=== PATIENT | male | born 1980 | race Caucasian/White ===

== ENCOUNTER 2016-05-04 22:09 | Inpatient (IN) | payer OTHER ==
[~2016-05-04] VITALS: Ht 177.8 cm; Wt 122.5 kg
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
[2016-05-04] MEDS ORDERED: NITROGLYCERIN SUBLINGUAL 0.4 MG BOTTLE OF 25. SL PRN ×2 (22:30→23:30)
[2016-05-04 22:32] LABS: BASO # 0.1 x10^3/uL (0.0-0.2); BASO % 1 % (0-3); EOS % 2 % (0-3); HEMOGLOBIN 14.9 g/dL (13.0-17.5); LYMPH # 2.5 x10^3/uL (1.0-4.8); LYMPH % 20 % (24-48); MEAN CORPUSCULAR HEMOGLOBIN 29 pg (25-35); MEAN CORPUSCULAR HGB CONC 33 g/dL (31-37); MEAN CORPUSCULAR VOLUME 88 fL (79-100); MONO % 5 % (0-9); NEUT % 72 % (31-73); PLATELET COUNT 154 x10^3/uL (140-400); RED BLOOD COUNT 5.14 x10^6/uL (4.30-5.70); RED CELL DISTRIBUTION WIDTH 13.2 % (11.5-14.5); WHITE BLOOD COUNT 12.1 x10^3/uL (4.0-11.0)
[2016-05-04 22:59] LABS: CALCIUM 9.3 mg/dL (8.5-10.1); CREATININE 1.1 mg/dL (0.7-1.3); GFR 75.3; POTASSIUM 3.8 mmol/L (3.5-5.1)
[2016-05-04] MEDS ORDERED: IV NORMAL SALINE 1000ML BAG 1,000 ML IV ONE (23:15)
[2016-05-04] MEDS ORDERED: ONDANSETRON PF 4 MG/2 ML VIAL. IV PRN (23:30)
[2016-05-04] MEDS ORDERED: DEXTROSE 50% 25 GM / 50ML DISP.SYRIN. IV PRN (23:30)
[2016-05-04] MEDS ORDERED: MORPHINE SULFATE 2 MG/ML DISP.SYRIN. IV PRN (23:30)
[2016-05-05 01:03] VITALS: BP 135/81
[2016-05-05] MEDS ORDERED: INSU100I13 SQ (01:52)
[2016-05-05] MEDS ORDERED: INSU100I17 SQ ×3 (01:52)
[2016-05-05] MEDS ORDERED: METF10002 PO (01:52)
[2016-05-05] MEDS ORDERED: CLOP75TA PO (01:52)
[2016-05-05 03:00] VITALS: BP 123/62
[2016-05-05 07:00] VITALS: BP 108/61
--- NOTE | 2016-05-05 07:41 | RAD ---
Two view chest History:Chest pain . PA and lateral views of the chest are submitted. Comparison: 06/16/2015 Findings: There is no significant infiltrate, pleural effusion, or pneumothorax. The pericardial cardiac silhouette is within normal limits in size. The trachea is in the midline. No acute osseous abnormality is identified. Impression: There is no evidence of acute cardiopulmonary disease.
[2016-05-05] MEDS: INSULIN ASPART 300 UNITS/3 ML INSULN.PEN SQ SCH ×5 (08:30→17:12)
[2016-05-05 11:00] VITALS: BP 106/62
[2016-05-05] MEDS: CLOPIDOGREL BISULFATE 75 MG TABLET PO SCH (11:56)
[2016-05-05] MEDS: METFORMIN 1,000 MG TABLET PO SCH ×2 (11:56→17:02)
--- NOTE | 2016-05-05 12:20 | PDOC ---
Provider Note Provider Note H&P dictated, # [id number] chest pain - occured at rest and unlikely to be cardiac but he is on plavix and apparently had it started after [facility] hospitalization last year but denies having a stent uncontrolled type 2 DM on insulin- he has been noncompliant and trying to skip doses so he will not run out Rocio MORROW MD May 05, 2016 12:20
--- NOTE | 2016-05-05 12:20 | EKG ---
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
[2016-05-05 15:00] VITALS: BP 106/64
[2016-05-05] MEDS ORDERED: INSULIN ASPART 300 UNITS/3 ML INSULN.PEN SQ SCH (17:00)
[2016-05-05 19:22] VITALS: BP 123/62
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
[2016-05-05] MEDS: INSULIN DETEMIR 300 UNITS/3 ML INSULN.PEN. SQ SCH (21:40)
[2016-05-06 03:35] VITALS: BP 80/32
[2016-05-06 05:06] LABS: BASO # 0.1 x10^3/uL (0.0-0.2); BASO % 0 % (0-3); EOS % 2 % (0-3); HEMATOCRIT 41.8 % (39.0-53.0); LYMPH # 2.6 x10^3/uL (1.0-4.8); LYMPH % 22 % (24-48); MEAN CORPUSCULAR HEMOGLOBIN 29 pg (25-35); MEAN CORPUSCULAR HGB CONC 34 g/dL (31-37); MEAN CORPUSCULAR VOLUME 87 fL (79-100); MONO % 6 % (0-9); NEUT % 70 % (31-73); PLATELET COUNT 156 x10^3/uL (140-400); RED BLOOD COUNT 4.79 x10^6/uL (4.30-5.70); RED CELL DISTRIBUTION WIDTH 13.1 % (11.5-14.5); WHITE BLOOD COUNT 12.1 x10^3/uL (4.0-11.0)
[2016-05-06 05:47] LABS: CALCIUM 8.8 mg/dL (8.5-10.1); CREATININE 0.8 mg/dL (0.7-1.3); GFR 108.8; POTASSIUM 3.6 mmol/L (3.5-5.1)
[2016-05-06 07:00] VITALS: BP 97/56
[2016-05-06] MEDS: METFORMIN 1,000 MG TABLET PO SCH ×2 (08:37→17:28)
[2016-05-06] MEDS: CLOPIDOGREL BISULFATE 75 MG TABLET PO SCH (08:38)
[2016-05-06] MEDS: INSULIN ASPART 300 UNITS/3 ML INSULN.PEN SQ SCH ×6 (08:44→17:00)
--- NOTE | 2016-05-06 08:56 | PDOC ---
PROGRESS NOTES Subjective Subjective Patient reports feeling well this morning and denies any acute events overnight. States that he did not feel well when his blood sugar dropped to around 80 last night but otherwise does not have any complaints. States that he would like to speak with Cardiology prior to discharge and plans to follow-up in outpatient clinic. Objective Objective Vital Signs Date Time Temp Pulse Resp B/P Pulse Ox O2 Delivery O2 Flow Rate FiO2 05/06/16 07:00 98.1 68 16 97/56 97 Room Air 98.1 Intake and Output 05/06/16 07:00 Intake Total 880 ml Balance 880 ml Intake Oral 880 ml # Voids 5 Physical Exam Heart: Regular rate, No murmurs Extremities: No clubbing, No cyanosis, No edema General: Alert, Oriented X3, No acute distress Lungs: Clear to auscultation Psych/Mental Status: Mental status NL Assessment Assessment Problems Medical Problems: (1) Chest pain Status: Acute (2) Diabetes Mellitus Type 2 with hyperglycemia Status: Acute Plan Plan of Care Medical Problems: (1) Chest pain-await cardiology input on his chest pain, likely discharge home today Status: Acute (2) Diabetes Mellitus Type 2 with hyperglycemia-continue with current insulin regimen, nutritional consult placed, plan to follow-up in outpatient clinic Status: Acute Comment Review of Relevant I have reviewed the following items damien (where applicable) has been applied. Labs Laboratory Tests Test 05/04/16 22:15 05/05/16 01:21 05/05/16 05:56 05/05/16 07:10 White Blood Count 12.1x10^3/uL (4.0-11.0) Red Blood Count 5.14x10^6/uL (4.30-5.70) Hemoglobin 14.9g/dL (13.0-17.5) Hematocrit 45.0% (39.0-53.0) Mean Corpuscular Volume 88fL (79-100) Mean Corpuscular Hemoglobin 29pg (25-35) Mean Corpuscular Hemoglobin Concent 33g/dL (31-37) Red Cell Distribution Width 13.2% (11.5-14.5) Platelet Count 154x10^3/uL (140-400) Neutrophils (%) (Auto) 72% (31-73) Lymphocytes (%) (Auto) 20% (24-48) Monocytes (%) (Auto) 5% (0-9) Eosinophils (%) (Auto) 2% (0-3) Basophils (%) (Auto) 1% (0-3) Neutrophils # (Auto) 8.7x10^3uL (1.8-7.7) Lymphocytes # (Auto) 2.5x10^3/uL (1.0-4.8) Monocytes # (Auto) 0.7x10^3/uL (0.0-1.1) Eosinophils # (Auto) 0.2x10^3/uL (0.0-0.7) Basophils # (Auto) 0.1x10^3/uL (0.0-0.2) Sodium Level 138mmol/L (136-145) Potassium Level 3.8mmol/L (3.5-5.1) Chloride Level 100mmol/L (98-107) Carbon Dioxide Level 29mmol/L (21-32) Anion Gap 9 (6-14) Blood Urea Nitrogen 16mg/dL (8-26) Creatinine 1.1mg/dL (0.7-1.3) Estimated GFR (Cockcroft-Gault) 75.3 Glucose Level 363mg/dL (70-99) Calcium Level 9.3mg/dL (8.5-10.1) Troponin I Quantitative < 0.017ng/mL (0.000-0.055) < 0.017ng/mL (0.000-0.055) Glucose (Fingerstick) 259mg/dL (70-99) 256mg/dL (70-99) Test 05/05/16 11:24 05/05/16 11:31 05/05/16 16:18 05/05/16 19:13 Glucose (Fingerstick) 271mg/dL (70-99) 217mg/dL (70-99) 81mg/dL (70-99) Troponin I Quantitative < 0.017ng/mL (0.000-0.055) Test 05/05/16 20:21 05/05/16 21:25 05/06/16 04:30 05/06/16 04:38 Glucose (Fingerstick) 107mg/dL (70-99) 147mg/dL (70-99) White Blood Count 12.1x10^3/uL (4.0-11.0) Red Blood Count 4.79x10^6/uL (4.30-5.70) Hemoglobin 14.0g/dL (13.0-17.5) Hematocrit 41.8% (39.0-53.0) Mean Corpuscular Volume 87fL (79-100) Mean Corpuscular Hemoglobin 29pg (25-35) Mean Corpuscular Hemoglobin Concent 34g/dL (31-37) Red Cell Distribution Width 13.1% (11.5-14.5) Platelet Count 156x10^3/uL (140-400) Neutrophils (%) (Auto) 70% (31-73) Lymphocytes (%) (Auto) 22% (24-48) Monocytes (%) (Auto) 6% (0-9) Eosinophils (%) (Auto) 2% (0-3) Basophils (%) (Auto) 0% (0-3) Neutrophils # (Auto) 8.5x10^3uL (1.8-7.7) Lymphocytes # (Auto) 2.6x10^3/uL (1.0-4.8) Monocytes # (Auto) 0.7x10^3/uL (0.0-1.1) Eosinophils # (Auto) 0.2x10^3/uL (0.0-0.7) Basophils # (Auto) 0.1x10^3/uL (0.0-0.2) Sodium Level 138mmol/L (136-145) Potassium Level 3.6mmol/L (3.5-5.1) Chloride Level 102mmol/L (98-107) Carbon Dioxide Level 26mmol/L (21-32) Anion Gap 10 (6-14) Blood Urea Nitrogen 16mg/dL (8-26) Creatinine 0.8mg/dL (0.7-1.3) Estimated GFR (Cockcroft-Gault) 108.8 Glucose Level 212mg/dL (70-99) Calcium Level 8.8mg/dL (8.5-10.1) Test 05/06/16 07:05 Glucose (Fingerstick) 172mg/dL (70-99) Laboratory Tests Test 05/05/16 11:24 05/05/16 11:31 05/05/16 16:18 05/05/16 19:13 Glucose (Fingerstick) 271mg/dL (70-99) 217mg/dL (70-99) 81mg/dL (70-99) Troponin I Quantitative < 0.017ng/mL (0.000-0.055) Test 05/05/16 20:21 05/05/16 21:25 05/06/16 04:30 05/06/16 04:38 Glucose (Fingerstick) 107mg/dL (70-99) 147mg/dL (70-99) White Blood Count 12.1x10^3/uL (4.0-11.0) Red Blood Count 4.79x10^6/uL (4.30-5.70) Hemoglobin 14.0g/dL (13.0-17.5) Hematocrit 41.8% (39.0-53.0) Mean Corpuscular Volume 87fL (79-100) Mean Corpuscular Hemoglobin 29pg (25-35) Mean Corpuscular Hemoglobin Concent 34g/dL (31-37) Red Cell Distribution Width 13.1% (11.5-14.5) Platelet Count 156x10^3/uL (140-400) Neutrophils (%) (Auto) 70% (31-73) Lymphocytes (%) (Auto) 22% (24-48) Monocytes (%) (Auto) 6% (0-9) Eosinophils (%) (Auto) 2% (0-3) Basophils (%) (Auto) 0% (0-3) Neutrophils # (Auto) 8.5x10^3uL (1.8-7.7) Lymphocytes # (Auto) 2.6x10^3/uL (1.0-4.8) Monocytes # (Auto) 0.7x10^3/uL (0.0-1.1) Eosinophils # (Auto) 0.2x10^3/uL (0.0-0.7) Basophils # (Auto) 0.1x10^3/uL (0.0-0.2) Sodium Level 138mmol/L (136-145) Potassium Level 3.6mmol/L (3.5-5.1) Chloride Level 102mmol/L (98-107) Carbon Dioxide Level 26mmol/L (21-32) Anion Gap 10 (6-14) Blood Urea Nitrogen 16mg/dL (8-26) Creatinine 0.8mg/dL (0.7-1.3) Estimated GFR (Cockcroft-Gault) 108.8 Glucose Level 212mg/dL (70-99) Calcium Level 8.8mg/dL (8.5-10.1) Test 05/06/16 07:05 Glucose (Fingerstick) 172mg/dL (70-99) Medications Current Medications Nitroglycerin 0.4 mg 0.4 mg PRN Q5MIN PRN SL CP RATING > 1/10 Last administered on 05/04/16 23:25; Start 05/04/16 at 22:30; Stop 05/05/16 at 00:00 ; Status DC Sodium Chloride (Iv Sodium Chloride 0.9% 1000ml Bag) 1,000 ml @ 1,000 mls/hr 1X ONCE IV Last administered on 05/04/16 23:15; Start 05/04/16 at 23:15; Stop 05/05/16 at 00:14; Status DC Ondansetron HCl (Zofran) 4 mg PRN Q8HRS PRN IV NAUSEA/VOMITING; Start 05/04/16 at 23:30; Stop 05/05/16 at 23:29; Status DC Morphine Sulfate 2 mg PRN Q2HR PRN IV PAIN Last administered on 05/05/16 17:07 ; Start 05/04/16 at 23:30; Stop 05/05/16 at 23:29; Status DC Nitroglycerin (Nitrostat) 0.4 mg PRN Q5MIN PRN SL CHEST PAIN; Start 05/04/16 at 23:30; Stop 05/05/16 at 23:29; Status DC Insulin Aspart (Novolog) 0-7 UNITS TIDWMEALS SQ Last administered on 05/06/16 08:44; Start 05/05/16 at 08:00 Dextrose 12.5 gm PRN Q15MIN PRN IV SEE COMMENTS; Start 05/04/16 at 23:30 Clopidogrel Bisulfate (Plavix) 75 mg DAILY PO Last administered on 05/06/16 08 :38; Start 05/05/16 at 11:00 Insulin Aspart (Novolog) 50 units DAILYWBKFT SQ Last administered on 05/06/16 08:44; Start 05/06/16 at 08:00 Insulin Aspart (Novolog) 50 units DAILYWLUN SQ Last administered on 05/05/16 12:01; Start 05/05/16 at 12:00 Insulin Aspart (Novolog) 100 units DAILYWSUP SQ ; Start 05/05/16 at 17:00; Stop 05/05/16 at 17:00; Status DC Metformin HCl (Glucophage) 1,000 mg BIDWMEALS PO Last administered on 08:37; Start 05/05/16 at 11:00 Insulin Detemir (Levemir) 100 units QHS SQ Last administered on 05/05/16 21:40 ; Start 05/05/16 at 21:00 Insulin Aspart (Novolog) 70 units DAILYWSUP SQ Last administered on 05/05/16 17:12; Start 05/05/16 at 17:00 Active Scripts Active Reported Novolog Flexpen (Insulin Aspart) 100 Unit/1 Ml Insuln.pen 100 Unit SQ DAILYWSUP Novolog Flexpen (Insulin Aspart) 100 Unit/1 Ml Insuln.pen 50 Unit SQ DAILYWLUN Novolog Flexpen (Insulin Aspart) 100 Unit/1 Ml Insuln.pen 50 Unit SQ DAILYWBKFT Lantus Solostar (Insulin Glargine,Hum.rec.anlog) 100 Unit/1 Ml Insuln.pen 100 Unit SQ QHS Metformin Hcl 1,000 Mg Tablet 1 Tab PO BID Clopidogrel (Clopidogrel Bisulfate) 75 Mg Tablet 1 Tab PO DAILY Vitals/I & O Vital Sign - Last 24 Hours 05/05/16 05/05/16 05/05/16 05/05/16 11:00 15:00 17:07 17:40 Temp 98.0 98.6 98.0 98.6 Pulse 74 71 Resp 18 18 B/P 106/62 106/64 Pulse Ox 98 96 O2 Delivery Room Air Room Air Room Air Room Air 05/05/16 05/05/16 05/06/16 05/06/16 19:22 20:00 03:35 07:00 Temp 97.7 98.1 98.1 97.7 98.1 98.1 Pulse 102 70 68 Resp 18 20 16 B/P 123/62 80/32 97/56 Pulse Ox 94 96 97 O2 Delivery Room Air Room Air Room Air Room Air Intake and Output 05/05/16 05/05/16 05/06/16 15:00 23:00 07:00 Intake Total 180 ml 700 ml Balance 180 ml 700 ml Rocio MORROW MD May 06, 2016 08:56
--- NOTE | 2016-05-06 10:06 | PDOC2 ---
CARDIAC CONSULT DATE OF CONSULT Date of Consult DATE: 05/06/16 TIME: 10:02 REASON FOR CONSULT Reason for Consult: Chest Pain REFERRING PHYSICIAN Referring Physician: Dr. Collins SOURCE Source: Chart review, Patient HISTORY OF PRESENT ILLNESS HISTORY OF PRESENT ILLNESS This is a 35 yo male who presented with complaints of chest pain. Patient reports he was sitting having an intense, stressful discussion with girlfriend Friday night when he had a sudden onset of central chest pain. Describes as sharp pressure. Patient reports his "head went black", felt weak, and then developed numbness and tingling in his arms. Girlfriend reports he was unresponsive for a couple of minutes and had dry heaving. EMS was called. Patient additionally reports associated shortness of breath. No palpitations, dizziness, or diaphoresis. No previous experience with similar symptoms. Patient reports chest pain resolved with nitro in ED. Patient is somewhat of a poor historian and is noncompliance with medications. BS generally range in the 400-600 range. Does not take insulin or check blood sugars routinely. Also in noncompliance with medications. Is on Plavix but does not know why- "maybe for my heart". Does not follow with photographic aide. Reports having cardiac cath last year or the year before at or [facility]. Does not believe he had stents placed. Was given card to keep in his wallet for specific amount of time but wallet is with ex-girlfriend. Assuming this is for closure device. Patient had breakfast this morning. PAST MEDICAL HISTORY Cardiovascular: HTN, ID, Hyperlipidemia Pulmonary: Asthma, Bronchitis CENTRAL NERVOUS SYSTEM: Other (no pertinent hx ) GI: GERD Heme/Onc: No pertinent hx Hepatobiliary: No pertinent hx Psych: Anxiety, Depression Musculoskeletal: Osteoarthritis Rheumatologic: No pertinent hx Infectious disease: No pertinent hx ENT: No pertinent hx Renal/: No pertinent hx Endocrine: Diabetes Dermatology: No pertinent hx PAST SURGICAL HISTORY Past Surgical History: Other (left lung bx) FAMILY HISTORY Family History: Coronary Artery Disease, Diabetes, High Cholestrol, Hypertension SOCIAL HISTORY Smoke: 1 pack per day ALCOHOL: none Drugs: None CURRENT MEDICATIONS CURRENT MEDICATIONS Current Medications Medications (Trade) Dose Ordered Sig/Alexia Route PRN Reason Start Time Stop Time Status Last Admin Dose Admin Clopidogrel Bisulfate (Plavix) 75 mg DAILY PO 05/05/16 11:00 05/06/16 08:38 Insulin Aspart (Novolog) 50 units DAILYWBKFT SQ 05/06/16 08:00 05/06/16 08:44 Insulin Aspart (Novolog) 50 units DAILYWLUN SQ 05/05/16 12:00 05/05/16 12:01 Metformin HCl (Glucophage) 1,000 mg BIDWMEALS PO 05/05/16 11:00 05/06/16 08:37 Insulin Detemir (Levemir) 100 units QHS SQ 05/05/16 21:00 05/05/16 21:40 Insulin Aspart (Novolog) 70 units DAILYWSUP SQ 05/05/16 17:00 05/05/16 17:12 ALLERGIES ALLERGIES: Coded Allergies: acetaminophen (Verified Allergy, Intermediate, itches, 09/02/13) aspirin (Verified Allergy, Intermediate, anaphylaxis, 05/06/16) ibuprofen (Verified Allergy, Intermediate, "My genitals swell 1o x their size", 09/02/13) propoxyphene (Verified Allergy, Intermediate, itches, 09/02/13) ROS Review of System 14 point ROS conducted with pertinent positives noted above in HPI PHYSICAL EXAM General: Alert, Oriented X3, Cooperative, No acute distress HEENT: Atraumatic, Mucous membr. moist/pink Lungs: Clear to auscultation, Normal air movement Heart: Regular rate, Normal S1, Normal S2 Abdomen: Soft, No tenderness Extremities: No edema, Normal pulses Skin: No significant lesion Neuro: Normal speech, Sensation intact Psych/Mental Status: Mental status NL, Mood NL MUSCULOSKELETAL: Full range of motion without pain VITALS VITALS Vital Signs Date Time Temp Pulse Resp B/P Pulse Ox O2 Delivery O2 Flow Rate FiO2 05/06/16 08:10 Room Air 05/06/16 07:00 98.1 68 16 97/56 97 98.1 LABS Lab: Laboratory Tests Test 05/05/16 11:24 05/05/16 11:31 05/05/16 16:18 05/05/16 19:13 Glucose (Fingerstick) 271mg/dL (70-99) 217mg/dL (70-99) 81mg/dL (70-99) Troponin I Quantitative < 0.017ng/mL (0.000-0.055) Test 05/05/16 20:21 05/05/16 21:25 2/13/17 04:30 05/06/16 04:38 Glucose (Fingerstick) 107mg/dL (70-99) 147mg/dL (70-99) White Blood Count 12.1x10^3/uL (4.0-11.0) Red Blood Count 4.79x10^6/uL (4.30-5.70) Hemoglobin 14.0g/dL (13.0-17.5) Hematocrit 41.8% (39.0-53.0) Mean Corpuscular Volume 87fL (79-100) Mean Corpuscular Hemoglobin 29pg (25-35) Mean Corpuscular Hemoglobin Concent 34g/dL (31-37) Red Cell Distribution Width 13.1% (11.5-14.5) Platelet Count 156x10^3/uL (140-400) Neutrophils (%) (Auto) 70% (31-73) Lymphocytes (%) (Auto) 22% (24-48) Monocytes (%) (Auto) 6% (0-9) Eosinophils (%) (Auto) 2% (0-3) Basophils (%) (Auto) 0% (0-3) Neutrophils # (Auto) 8.5x10^3uL (1.8-7.7) Lymphocytes # (Auto) 2.6x10^3/uL (1.0-4.8) Monocytes # (Auto) 0.7x10^3/uL (0.0-1.1) Eosinophils # (Auto) 0.2x10^3/uL (0.0-0.7) Basophils # (Auto) 0.1x10^3/uL (0.0-0.2) Sodium Level 138mmol/L (136-145) Potassium Level 3.6mmol/L (3.5-5.1) Chloride Level 102mmol/L (98-107) Carbon Dioxide Level 26mmol/L (21-32) Anion Gap 10 (6-14) Blood Urea Nitrogen 16mg/dL (8-26) Creatinine 0.8mg/dL (0.7-1.3) Estimated GFR (Cockcroft-Gault) 108.8 Glucose Level 212mg/dL (70-99) Calcium Level 8.8mg/dL (8.5-10.1) Test 2/13/17 07:05 Glucose (Fingerstick) 172mg/dL (70-99) ASSESSMENT/PLAN ASSESSMENT/PLAN 1. Chest Pain troponin series normal, AMI ruled out previous cath a [facility] or - will attempt to obtain these records suspect symptoms were stress induced but will obtain echocardiogram to r/o WMA allergy to ASA. Plavix resumed. check lipids 2. Hypertension controlled 3. Hyperlipidemia check lipids 4. Diabetes uncontrolled per PCP 5. Noncompliance importance of adherence discussed with pt and girlfriend Problems: KG LUGO APRN May 06, 2016 10:06
[2016-05-06] MEDS ORDERED: ASPIRIN 81 MG TAB.CHEW PO ONE (10:45)
[2016-05-06 11:00] VITALS: BP 114/67
[2016-05-06 11:30] LABS: CHOLESTEROL/HDL RATIO 6.8
[2016-05-06 13:21] LABS: BARBITURATES NEG (NEG); BENZODIAZEPINES NEG (NEG); CANNABINOIDS NEG (NEG); COCAINE NEG (NEG); METHADONE NEG (NEG); OPIATES POS (NEG); PHENCYCLIDINE NEG (NEG)
[2016-05-06 13:22] LABS: ETHANOL, URINE NEG (NEG)
[2016-05-06 15:00] VITALS: BP 107/53
--- NOTE | 2016-05-06 15:14 | CARD ---
APPROVED REPORT EXAM: Two-dimensional and M-mode echocardiogram with Doppler and color Doppler. Other Information Quality : Average Rhythm : NSR INDICATION Chest Pain 2D DIMENSIONS RVDd3.0 (2.9-3.5cm)Left Atrium(2D)3.9 (1.6-4.0cm) IVSd1.1 (0.7-1.1cm)Aortic Root(2D)2.6 (2.0-3.7cm) LVDd4.6 (3.9-5.9cm)LVOT Diameter2.0 (1.8-2.4cm) PWd1.1 (0.7-1.1cm)LVDs2.5 (2.5-4.0cm) FS (%) 34.5 %SV73.3 ml LVEF(%)65.8 (>50%) Aortic Valve AoV Peak Apolinar.152.4cm/sAoV VTI24.2cm AO Peak GR.9.3mmHgLVOT Peak Apolinar.126.9cm/s LVOT VTI 21.01cmAO Mean GR.5mmHg AZALIA (VMAX)2.16xj0SGD (VTI)2.69cm2 Mitral Valve MV E Krwcwhpc99.3cm/sMV DECEL RKFR937dx MV A Sbdgogfx63.3cm/sMV E Mean Gr.2mmHg MV FPP57qwT/A Ratio1.6 MV A [id number] (PHT)4.16cm2 TDI E/Lateral E'6.3E/Medial E'6.8 Pulmonary Valve PV Peak Zbwenwto314.0cm/sPV Peak Grad.6mmHg RVOT VTI22.6cm Pulmonary Vein S1 Aqrgplwc28.8cm/sD2 Seggxaob93.6cm/s LEFT VENTRICLE The left ventricle is normal size. There is normal left ventricular wall thickness. Left ventricle sy stolic function is normal. The Ejection Fraction is 65-70%. There is normal LV segmental wall motion. The left ventricular diastolic function and filling is normal for age. RIGHT VENTRICLE The right ventricle is normal size. The right ventricular systolic function is normal. ATRIA The left atrium size is normal. The right atrium size is normal. The interatrial septum is intact wit h no evidence for an atrial septal defect or patent foramen ovale as noted on 2-D or Doppler imaging. AORTIC VALVE The aortic valve is normal in structure and function. The aortic valve is trileaflet. Doppler and Col or Flow revealed no significant aortic regurgitation. There is no significant aortic valvular stenosi s. MITRAL VALVE The mitral valve is normal in structure and function. There is no mitral valve stenosis. Doppler and Color Flow revealed no mitral valve regurgitation noted. TRICUSPID VALVE The tricuspid valve is normal in structure and function. Doppler and Color Flow revealed no tricuspid valve regurgitation noted. Unable to estimate PA pressure. There is no tricuspid valve stenosis. PULMONIC VALVE The pulmonic valve is not well visualized. Doppler and Color Flow revealed no pulmonic valvular regur gitation. There is no pulmonic valvular stenosis. GREAT VESSELS The aortic root is normal in size. Normal pulmonary venous flow (Doppler). The IVC is normal in size and collapses >50% with inspiration. PERICARDIAL EFFUSION There is no evidence of significant pericardial effusion. Critical Notification Critical Value: No <Conclusion> Left ventricle systolic function is normal. The Ejection Fraction is 65-70%. There is normal LV segmental wall motion.
[2016-05-06 19:00] VITALS: BP 128/59
[2016-05-06] MEDS: INSULIN DETEMIR 300 UNITS/3 ML INSULN.PEN. SQ SCH (21:19)
[2016-05-06 23:00] VITALS: BP 142/79
[2016-05-07] MEDS ORDERED: TRAMADOL 50 MG TABLET. PO PRN (00:15)
[2016-05-07 03:00] VITALS: BP 104/49
[2016-05-07 07:00] VITALS: BP 100/48
[2016-05-07] MEDS ORDERED: REGADENOSON 0.4 MG/5 ML DISP.SYRIN. IV ONE (07:45)
--- NOTE | 2016-05-07 08:21 | PDOC ---
PROGRESS NOTES Objective Objective Vital Signs Date Time Temp Pulse Resp B/P Pulse Ox O2 Delivery O2 Flow Rate FiO2 05/07/16 07:00 97.9 74 18 100/48 91 Room Air 97.9 Intake and Output 05/07/16 07:00 Intake Total 3165 ml Output Total 275 ml Balance 2890 ml Intake Oral 3165 ml Output Urine Total 275 ml # Voids 7 Assessment Assessment Problems Medical Problems: (1) Chest pain Status: Acute (2) Diabetes Mellitus Type 2, uncontrolled Status: Acute Plan Plan of Care Medical Problems: (1) Chest pain-recommendations per cardiology, await stress test results Status: Acute (2) Diabetes Mellitus Type 2, uncontrolled-continue current inpatient insulin regimen, nutrition consult placed Status: Acute Comment Review of Relevant I have reviewed the following items damien (where applicable) has been applied. Labs Laboratory Tests Test 05/05/16 11:24 05/05/16 11:31 05/05/16 16:18 05/05/16 19:13 Glucose (Fingerstick) 271mg/dL (70-99) 217mg/dL (70-99) 81mg/dL (70-99) Hemoglobin A1c 10.8% (4.8-5.6) Troponin I Quantitative < 0.017ng/mL (0.000-0.055) Test 05/05/16 20:21 05/05/16 21:25 05/06/16 04:30 05/06/16 04:38 Glucose (Fingerstick) 107mg/dL (70-99) 147mg/dL (70-99) White Blood Count 12.1x10^3/uL (4.0-11.0) Red Blood Count 4.79x10^6/uL (4.30-5.70) Hemoglobin 14.0g/dL (13.0-17.5) Hematocrit 41.8% (39.0-53.0) Mean Corpuscular Volume 87fL (79-100) Mean Corpuscular Hemoglobin 29pg (25-35) Mean Corpuscular Hemoglobin Concent 34g/dL (31-37) Red Cell Distribution Width 13.1% (11.5-14.5) Platelet Count 156x10^3/uL (140-400) Neutrophils (%) (Auto) 70% (31-73) Lymphocytes (%) (Auto) 22% (24-48) Monocytes (%) (Auto) 6% (0-9) Eosinophils (%) (Auto) 2% (0-3) Basophils (%) (Auto) 0% (0-3) Neutrophils # (Auto) 8.5x10^3uL (1.8-7.7) Lymphocytes # (Auto) 2.6x10^3/uL (1.0-4.8) Monocytes # (Auto) 0.7x10^3/uL (0.0-1.1) Eosinophils # (Auto) 0.2x10^3/uL (0.0-0.7) Basophils # (Auto) 0.1x10^3/uL (0.0-0.2) Sodium Level 138mmol/L (136-145) Potassium Level 3.6mmol/L (3.5-5.1) Chloride Level 102mmol/L (98-107) Carbon Dioxide Level 26mmol/L (21-32) Anion Gap 10 (6-14) Blood Urea Nitrogen 16mg/dL (8-26) Creatinine 0.8mg/dL (0.7-1.3) Estimated GFR (Cockcroft-Gault) 108.8 Glucose Level 212mg/dL (70-99) Calcium Level 8.8mg/dL (8.5-10.1) Triglycerides Level 158mg/dL (0-150) Cholesterol Level 176mg/dL (0-200) LDL Cholesterol, Calculated 118mg/dL (0-100) VLDL Cholesterol, Calculated 32mg/dL (0-40) HDL Cholesterol 26mg/dL (40-60) Cholesterol/HDL Ratio 6.8 Test 05/06/16 07:05 05/06/16 11:00 05/06/16 12:50 05/06/16 16:32 Glucose (Fingerstick) 172mg/dL (70-99) 124mg/dL (70-99) 96mg/dL (70-99) Urine Opiates Screen Pos (NEG) Urine Methadone Screen Neg (NEG) Urine Barbiturates Neg (NEG) Urine Phencyclidine Screen Neg (NEG) Urine Amphetamine/Methamphetamine Neg (NEG) Urine Benzodiazepines Screen Neg (NEG) Urine Cocaine Screen Neg (NEG) Urine Cannabinoids Screen Neg (NEG) Urine Ethyl Alcohol Neg (NEG) Test 05/06/16 21:00 05/07/16 07:11 Glucose (Fingerstick) 229mg/dL (70-99) 219mg/dL (70-99) Laboratory Tests Test 05/06/16 11:00 05/06/16 12:50 05/06/16 16:32 05/06/16 21:00 Glucose (Fingerstick) 124mg/dL (70-99) 96mg/dL (70-99) 229mg/dL (70-99) Urine Opiates Screen Pos (NEG) Urine Methadone Screen Neg (NEG) Urine Barbiturates Neg (NEG) Urine Phencyclidine Screen Neg (NEG) Urine Amphetamine/Methamphetamine Neg (NEG) Urine Benzodiazepines Screen Neg (NEG) Urine Cocaine Screen Neg (NEG) Urine Cannabinoids Screen Neg (NEG) Urine Ethyl Alcohol Neg (NEG) Test 05/07/16 07:11 Glucose (Fingerstick) 219mg/dL (70-99) Medications Current Medications Nitroglycerin 0.4 mg 0.4 mg PRN Q5MIN PRN SL CP RATING > 1/10 Last administered on 05/04/16 23:25; Start 05/04/16 at 22:30; Stop 05/05/16 at 00:00 ; Status DC Sodium Chloride (Iv Sodium Chloride 0.9% 1000ml Bag) 1,000 ml @ 1,000 mls/hr 1X ONCE IV Last administered on 05/04/16 23:15; Start 05/04/16 at 23:15; Stop 05/05/16 at 00:14; Status DC Ondansetron HCl (Zofran) 4 mg PRN Q8HRS PRN IV NAUSEA/VOMITING; Start 05/04/16 at 23:30; Stop 05/05/16 at 23:29; Status DC Morphine Sulfate 2 mg PRN Q2HR PRN IV PAIN Last administered on 05/05/16 17:07 ; Start 05/04/16 at 23:30; Stop 05/05/16 at 23:29; Status DC Nitroglycerin (Nitrostat) 0.4 mg PRN Q5MIN PRN SL CHEST PAIN; Start 05/04/16 at 23:30; Stop 05/05/16 at 23:29; Status DC Insulin Aspart (Novolog) 0-7 UNITS TIDWMEALS SQ Last administered on 2/13/17at 08:44; Start 05/05/16 at 08:00 Dextrose 12.5 gm PRN Q15MIN PRN IV SEE COMMENTS; Start 05/04/16 at 23:30 Clopidogrel Bisulfate (Plavix) 75 mg DAILY PO Last administered on 05/06/16 08 :38; Start 05/05/16 at 11:00 Insulin Aspart (Novolog) 50 units DAILYWBKFT SQ Last administered on 05/06/16 08:44; Start 05/06/16 at 08:00 Insulin Aspart (Novolog) 50 units DAILYWLUN SQ Last administered on 05/06/16 12:45; Start 05/05/16 at 12:00 Insulin Aspart (Novolog) 100 units DAILYWSUP SQ ; Start 05/05/16 at 17:00; Stop 05/05/16 at 17:00; Status DC Metformin HCl (Glucophage) 1,000 mg BIDWMEALS PO Last administered on 17:28; Start 05/05/16 at 11:00 Insulin Detemir (Levemir) 100 units QHS SQ Last administered on 05/06/16 21:19 ; Start 05/05/16 at 21:00 Insulin Aspart (Novolog) 70 units DAILYWSUP SQ Last administered on 05/05/16 17:12; Start 05/05/16 at 17:00 Aspirin (Children'S Aspirin) 324 mg 1X ONCE PO ; Start 05/06/16 at 10:45; Stop 05/06/16 at 10:46; Status UNV Tramadol HCl (Ultram) 50 mg PRN Q6HRS PRN PO PAIN; Start 05/07/16 at 00:15 Regadenoson (Lexiscan) 0.4 mg 1X ONCE IV ; Start 05/07/16 at 07:45; Stop at 07:46; Status DC Active Scripts Active Reported Novolog Flexpen (Insulin Aspart) 100 Unit/1 Ml Insuln.pen 100 Unit SQ DAILYWSUP Novolog Flexpen (Insulin Aspart) 100 Unit/1 Ml Insuln.pen 50 Unit SQ DAILYWLUN Novolog Flexpen (Insulin Aspart) 100 Unit/1 Ml Insuln.pen 50 Unit SQ DAILYWBKFT Lantus Solostar (Insulin Glargine,Hum.rec.anlog) 100 Unit/1 Ml Insuln.pen 100 Unit SQ QHS Metformin Hcl 1,000 Mg Tablet 1 Tab PO BID Clopidogrel (Clopidogrel Bisulfate) 75 Mg Tablet 1 Tab PO DAILY Vitals/I & O Vital Sign - Last 24 Hours 05/06/16 05/06/16 05/06/16 05/06/16 11:00 15:00 19:00 20:00 Temp 97.5 97.9 98.4 97.5 97.9 98.4 Pulse 68 80 78 Resp 16 16 20 B/P 114/67 107/53 128/59 Pulse Ox 97 98 93 O2 Delivery Room Air Room Air Room Air Room Air 05/06/16 05/07/16 05/07/16 23:00 03:00 07:00 Temp 98.8 98.5 97.9 98.8 98.5 97.9 Pulse 85 81 74 Resp 18 20 18 B/P 142/79 104/49 100/48 Pulse Ox 91 95 91 O2 Delivery Room Air Room Air Room Air Intake and Output 05/06/16 05/06/16 05/07/16 15:00 23:00 07:00 Intake Total 1015 ml 2150 ml 0 ml Output Total 275 ml Balance 1015 ml 1875 ml 0 ml Rocio MORROW MD May 07, 2016 08:21
[2016-05-07] MEDS: CLOPIDOGREL BISULFATE 75 MG TABLET PO SCH (08:48)
[2016-05-07] MEDS: METFORMIN 1,000 MG TABLET PO SCH (08:49)
[2016-05-07] MEDS: INSULIN ASPART 300 UNITS/3 ML INSULN.PEN SQ SCH ×4 (08:54→12:00)
[2016-05-07] MEDS ORDERED: ACETAMINOPHEN 325 MG TABLET. PO PRN (10:15)
[2016-05-07 11:00] VITALS: BP 113/65
--- NOTE | 2016-05-07 13:53 | RAD ---
APPROVED REPORT Test Type: Pharmacological Stress Nurse/Tech: Rita Lagunas R.N. Test Indications: c/p Cardiac History: htn, previous [place], current smoker, DM Medications: See Electronic Medical Record Medical History: See Electronic Medical Record Resting ECG: SR Resting Heart Rate: 86 bpm Resting Blood Pressure: 121/68mmHg Pretest Chest Pain: Typical angina Nurse/Tech Notes S1S2, lungs CTA, pt states that he has a painful "knot" feeling in center of chest that is scaled at 5/10 Consent: The procedure was explained to the patient in lay terms. Informed consent was witnessed. [place] eout was entered into [employer] [facility] [employer]. History and Stress Test performed by DARNELL Jimenez Pharm. Details Pharmacologic stress testing was performed using 0.4mg per 5ml of regadenoson given intravenously ove r 7-10 seconds. Stress Symptoms slight SOB, slight increase in chest discomfort to scale 8/10 that did return to above noted baseline by end of recovery period POST EXERCISE Reason for Termination: Infusion complete Max HR: 111 bpm Max Blood Pressure: 120/62mmHg Blood Pressure response to exercise: first b/p dropped at first then back to baseline Heart Rate response to exercise: wnl Chest Pain: Yes. see above note Arrhythmia: No. ST Change: No. INTERPRETATION Stress EKG Conclusion: No evidencve of stress induced EKG changes Imaging Protocol IMAGE PROTOCOL: Rest Tc-99m/stress Tc-99m 2 days Rest: Stress: Viability: Radiopharm.Tc99m Sestamibi [id number] Img Date 05/07/2016 Inj-Img [id number]. Stress Admin Site: IV - Left AntecubitalAdministrator: ARNOLD Henry, ARRT (R)(N) STRESS DATA End Diast. Vol.118.0mlAv. Heart Rate72.0bpm End Syst. Vol.41.0mlCO Index BSA0.0L/min Myocardial Negy722.0gEject. Jmijyvxj93.0% Stress Rates Pk. Fill Rate3.67EDV/secLVtime Pk. Fill 147.88msec Pk. Empty Rate3.94ESV/secLVtime Pk. Tsowu442.62msec 03/26 Pk. Fill1.68EDV/sec Stress Scores Regional WT0.00Summed WT11.00 Regional WM0.00Summed WM0.00 LV Perfusion Normal myocardial perfusion at stress. Wall Motion Normal wall motion. LV Perf. Quant 17 Seg. SSS1.00 Stress Defect Extent (% LAD)0.00Rest Defect Extent (% LAD)Rev. Defect Extent (% LAD)0.00 Stress Defect Extent (% LCX) 0.00Rest Defect Extent (% LCX)Rev. Defect Extent (% LCX)0.00 Stress Defect Extent (% RCA)0.00Rest Defect Extent (% RCA)Rev. Defect Extent (% RCA)0.00 Stress Defect Extent (% ANGELO)0.00Rest Defect Extent (% ANEGLO)Rev. Defect Extent (% ANGELO)0.00 Other Information Quality:Good Risk Assessment: Low Risk Conclusion 1. No evidence of EKG changes 2. Normal myocardial perfusion at stress. 3. Low risk study. 4. EF > 65%
[2016-05-07 15:00] VITALS: BP 114/72
--- NOTE | 2016-05-07 16:20 | PDOC ---
PROGRESS NOTES Subjective Subjective The patient looks and feels better today. Objective Objective Vital Signs Date Time Temp Pulse Resp B/P Pulse Ox O2 Delivery O2 Flow Rate FiO2 05/07/16 15:00 97.9 70 18 114/72 94 Room Air 97.9 Intake and Output 05/07/16 07:00 Intake Total 3165 ml Output Total 275 ml Balance 2890 ml Intake Oral 3165 ml Output Urine Total 275 ml # Voids 7 Physical Exam Abdomen: Normal bowel sounds Heart: Regular rate Extremities: No clubbing General: No acute distress HEENT: Atraumatic Lungs: Clear to auscultation Assessment Assessment Problems Medical Problems: (1) Chest pain Status: Acute 1. Chest Pain troponin series normal, AMI ruled out Nuclear stress test pending today. 2. Hypertension controlled 3. Hyperlipidemia continue medications 4. Diabetes per PCP 5. Noncompliance Comment Review of Relevant I have reviewed the following items damien (where applicable) has been applied. Labs Laboratory Tests Test 05/05/16 19:13 05/05/16 20:21 05/05/16 21:25 05/06/16 04:30 Glucose (Fingerstick) 81mg/dL (70-99) 107mg/dL (70-99) 147mg/dL (70-99) White Blood Count 12.1x10^3/uL (4.0-11.0) Red Blood Count 4.79x10^6/uL (4.30-5.70) Hemoglobin 14.0g/dL (13.0-17.5) Hematocrit 41.8% (39.0-53.0) Mean Corpuscular Volume 87fL (79-100) Mean Corpuscular Hemoglobin 29pg (25-35) Mean Corpuscular Hemoglobin Concent 34g/dL (31-37) Red Cell Distribution Width 13.1% (11.5-14.5) Platelet Count 156x10^3/uL (140-400) Neutrophils (%) (Auto) 70% (31-73) Lymphocytes (%) (Auto) 22% (24-48) Monocytes (%) (Auto) 6% (0-9) Eosinophils (%) (Auto) 2% (0-3) Basophils (%) (Auto) 0% (0-3) Neutrophils # (Auto) 8.5x10^3uL (1.8-7.7) Lymphocytes # (Auto) 2.6x10^3/uL (1.0-4.8) Monocytes # (Auto) 0.7x10^3/uL (0.0-1.1) Eosinophils # (Auto) 0.2x10^3/uL (0.0-0.7) Basophils # (Auto) 0.1x10^3/uL (0.0-0.2) Test 05/06/16 04:38 05/06/16 07:05 05/06/16 11:00 05/06/16 12:50 Sodium Level 138mmol/L (136-145) Potassium Level 3.6mmol/L (3.5-5.1) Chloride Level 102mmol/L (98-107) Carbon Dioxide Level 26mmol/L (21-32) Anion Gap 10 (6-14) Blood Urea Nitrogen 16mg/dL (8-26) Creatinine 0.8mg/dL (0.7-1.3) Estimated GFR (Cockcroft-Gault) 108.8 Glucose Level 212mg/dL (70-99) Calcium Level 8.8mg/dL (8.5-10.1) Triglycerides Level 158mg/dL (0-150) Cholesterol Level 176mg/dL (0-200) LDL Cholesterol, Calculated 118mg/dL (0-100) VLDL Cholesterol, Calculated 32mg/dL (0-40) HDL Cholesterol 26mg/dL (40-60) Cholesterol/HDL Ratio 6.8 Glucose (Fingerstick) 172mg/dL (70-99) 124mg/dL (70-99) Urine Opiates Screen Pos (NEG) Urine Methadone Screen Neg (NEG) Urine Barbiturates Neg (NEG) Urine Phencyclidine Screen Neg (NEG) Urine Amphetamine/Methamphetamine Neg (NEG) Urine Benzodiazepines Screen Neg (NEG) Urine Cocaine Screen Neg (NEG) Urine Cannabinoids Screen Neg (NEG) Urine Ethyl Alcohol Neg (NEG) Test 05/06/16 16:32 05/06/16 21:00 05/07/16 07:11 05/07/16 11:33 Glucose (Fingerstick) 96mg/dL (70-99) 229mg/dL (70-99) 219mg/dL (70-99) 92mg/dL (70-99) Laboratory Tests Test 05/06/16 16:32 05/06/16 21:00 05/07/16 07:11 05/07/16 11:33 Glucose (Fingerstick) 96mg/dL (70-99) 229mg/dL (70-99) 219mg/dL (70-99) 92mg/dL (70-99) Medications Current Medications Nitroglycerin 0.4 mg 0.4 mg PRN Q5MIN PRN SL CP RATING > 1/10 Last administered on 05/04/16 23:25; Start 05/04/16 at 22:30; Stop 05/05/16 at 00:00 ; Status DC Sodium Chloride (Iv Sodium Chloride 0.9% 1000ml Bag) 1,000 ml @ 1,000 mls/hr 1X ONCE IV Last administered on 05/04/16 23:15; Start 05/04/16 at 23:15; Stop 05/05/16 at 00:14; Status DC Ondansetron HCl (Zofran) 4 mg PRN Q8HRS PRN IV NAUSEA/VOMITING; Start 05/04/16 at 23:30; Stop 05/05/16 at 23:29; Status DC Morphine Sulfate 2 mg PRN Q2HR PRN IV PAIN Last administered on 05/05/16 17:07 ; Start 05/04/16 at 23:30; Stop 05/05/16 at 23:29; Status DC Nitroglycerin (Nitrostat) 0.4 mg PRN Q5MIN PRN SL CHEST PAIN; Start 05/04/16 at 23:30; Stop 05/05/16 at 23:29; Status DC Insulin Aspart (Novolog) 0-7 UNITS TIDWMEALS SQ Last administered on 05/07/16 08:55; Start 05/05/16 at 08:00; Stop 05/07/16 at 16:12; Status DC Dextrose 12.5 gm PRN Q15MIN PRN IV SEE COMMENTS; Start 05/04/16 at 23:30; Stop 05/07/16 at 16:12; Status DC Clopidogrel Bisulfate (Plavix) 75 mg DAILY PO Last administered on 05/07/16 08 :48; Start 05/05/16 at 11:00; Stop 05/07/16 at 16:12; Status DC Insulin Aspart (Novolog) 50 units DAILYWBKFT SQ Last administered on 05/07/16 08:54; Start 05/06/16 at 08:00; Stop 05/07/16 at 16:12; Status DC Insulin Aspart (Novolog) 50 units DAILYWLUN SQ Last administered on 05/06/16 12:45; Start 05/05/16 at 12:00; Stop 05/07/16 at 16:12; Status DC Insulin Aspart (Novolog) 100 units DAILYWSUP SQ ; Start 05/05/16 at 17:00; Stop 05/05/16 at 17:00; Status DC Metformin HCl (Glucophage) 1,000 mg BIDWMEALS PO Last administered on 08:49; Start 05/05/16 at 11:00; Stop 05/07/16 at 16:12; Status DC Insulin Detemir (Levemir) 100 units QHS SQ Last administered on 05/06/16 21:19 ; Start 05/05/16 at 21:00; Stop 05/07/16 at 16:12; Status DC Insulin Aspart (Novolog) 70 units DAILYWSUP SQ Last administered on 05/05/16 17:12; Start 05/05/16 at 17:00; Stop 05/07/16 at 16:12; Status DC Aspirin (Children'S Aspirin) 324 mg 1X ONCE PO ; Start 05/06/16 at 10:45; Stop 05/06/16 at 10:46; Status UNV Tramadol HCl (Ultram) 50 mg PRN Q6HRS PRN PO PAIN Last administered on 08:48; Start 05/07/16 at 00:15; Stop 05/07/16 at 16:12; Status DC Regadenoson (Lexiscan) 0.4 mg 1X ONCE IV Last administered on 05/07/16 08:20 ; Start 05/07/16 at 07:45; Stop 05/07/16 at 07:46; Status DC Acetaminophen (Tylenol) 650 mg PRN Q6HRS PRN PO MILD PAIN / TEMP; Start at 10:15; Stop 05/07/16 at 16:12; Status DC Active Scripts Active Reported Novolog Flexpen (Insulin Aspart) 100 Unit/1 Ml Insuln.pen 100 Unit SQ DAILYWSUP Novolog Flexpen (Insulin Aspart) 100 Unit/1 Ml Insuln.pen 50 Unit SQ DAILYWLUN Novolog Flexpen (Insulin Aspart) 100 Unit/1 Ml Insuln.pen 50 Unit SQ DAILYWBKFT Lantus Solostar (Insulin Glargine,Hum.rec.anlog) 100 Unit/1 Ml Insuln.pen 100 Unit SQ QHS Metformin Hcl 1,000 Mg Tablet 1 Tab PO BID Clopidogrel (Clopidogrel Bisulfate) 75 Mg Tablet 1 Tab PO DAILY Vitals/I & O Vital Sign - Last 24 Hours 05/06/16 05/06/16 05/06/16 05/07/16 19:00 20:00 23:00 03:00 Temp 98.4 98.8 98.5 98.4 98.8 98.5 Pulse 78 85 81 Resp 20 18 20 B/P 128/59 142/79 104/49 Pulse Ox 93 91 95 O2 Delivery Room Air Room Air Room Air Room Air 05/07/16 05/07/16 05/07/16 05/07/16 07:00 08:00 08:48 09:55 Temp 97.9 97.9 Pulse 74 Resp 18 B/P 100/48 Pulse Ox 91 O2 Delivery Room Air Room Air Room Air Room Air 05/07/16 05/07/16 11:00 15:00 Temp 98.4 97.9 98.4 97.9 Pulse 75 70 Resp 18 18 B/P 113/65 114/72 Pulse Ox 94 94 O2 Delivery Room Air Room Air Intake and Output 05/06/16 05/06/16 05/07/16 15:00 23:00 07:00 Intake Total 1015 ml 2150 ml 0 ml Output Total 275 ml Balance 1015 ml 1875 ml 0 ml JAVI HENDRICKSON MD May 07, 2016 16:20
--- NOTE | 2016-05-09 16:59 | PDOC3 ---
Discharge Summary Visit Information Date of Admission: May 04, 2016 Date of Discharge: May 07, 2016 Final Diagnosis Problems Medical Problems: (1) Chest pain Status: Acute Brief Hospital Course Allergies Allergies Coded Allergies Type Severity Reaction Last Updated Verified aspirin Allergy Intermediate anaphylaxis 05/06/16 Yes ibuprofen Allergy Intermediate "My genitals swell 1o x their size" 09/02/13 Yes propoxyphene Allergy Intermediate itches 09/02/13 Yes Brief Hospital Course Mr. Renteria is a 35 old [sex] who presented with chest pain as described in H&P and abnormal EKG. He was also hyperglycemic with uncontrolled hypertension. ACS was ruled out, cardiology sa in consultation, glucose was controlled and his PTSD was discussed. His stress test was unremarkable and he was discharged home with outpatient f/u arranged Discharge Information Condition at Discharge: Improved, Stable Follow Up: Weeks (1-2) Disposition/Orders: D/C to Home Scheduled Clopidogrel Bisulfate (Clopidogrel) 1 TAB PO DAILY (Reported) Insulin Aspart (Novolog Flexpen) 50 UNIT SQ DAILYWBKFT (Reported) Insulin Aspart (Novolog Flexpen) 50 UNIT SQ DAILYWLUN (Reported) Insulin Aspart (Novolog Flexpen) 100 UNIT SQ DAILYWSUP (Reported) Insulin Glargine,Hum.rec.anlog (Lantus Solostar) 100 UNIT SQ QHS (Reported) Metformin Hcl (Metformin Hcl) 1 TAB PO BID (Reported) Rocio MORROW MD May 09, 2016 16:59
== END 2016-05-07 16:09 | disposition home or self-care (01) | DRG 206 ==
LOC: ER 22:09 → 4 NORTH 23:19
PROVIDERS: ADMIT Family Medicine; ATTEND Family Medicine
DX: M94.0 Chondrocostal junction syndrome [Tietze] (principal); R07.89 Other chest pain; E11.65 Type 2 diabetes mellitus with hyperglycemia; J45.909 Unspecified asthma, uncomplicated; I10 Essential (primary) hypertension; E78.5 Hyperlipidemia, unspecified; K21.9 Gastro-esophageal reflux disease without esophagitis; F32.9 Major depressive disorder, single episode, unspecified; F41.9 Anxiety disorder, unspecified; F17.210 Nicotine dependence, cigarettes, uncomplicated; M19.90 Unspecified osteoarthritis, unspecified site; Z82.49 Family history of ischemic heart disease and other diseases of the circulatory system; Z88.6 Allergy status to analgesic agent; Z88.8 Allergy status to other drugs, medicaments and biological substances; Z91.14 Patient's other noncompliance with medication regimen; Z91.19 Patient's noncompliance with other medical treatment and regimen; Z79.4 Long term (current) use of insulin; Z79.02 Long term (current) use of antithrombotics/antiplatelets; Z83.3 Family history of diabetes mellitus; I25.2 Old myocardial infarction; Z79.82 Long term (current) use of aspirin; Z79.899 Other long term (current) drug therapy
CPT/HCPCS: 36415; 71020; 78452; 80048; 80061; 82947; 83036; 84484; 85027; 93005; 93017; 93306; 96360; 96374; 96375; A9500; G0481; J1815; J2270; J2785; J7030; 99285-25

== ENCOUNTER 2016-09-01 22:04 | Emergency (ER) | payer SELFPAY ==
[~2016-09-01] VITALS: Ht 177.8 cm; Wt 122.5 kg
[~2016-09-01 22:04] MED LIST: CLOP75TA PO; INSU100I13 SQ; INSU100I17 SQ; METF-620 PO
[2016-09-01 22:36] LABS: BASO # 0.2 x10^3/uL (0.0-0.2); BASO % 1 % (0-3); EOS % 2 % (0-3); HEMATOCRIT 44.8 % (39.0-53.0); HEMOGLOBIN 15.2 g/dL (13.0-17.5); LYMPH % 24 % (24-48); MEAN CORPUSCULAR HEMOGLOBIN 30 pg (25-35); MEAN CORPUSCULAR HGB CONC 34 g/dL (31-37); MEAN CORPUSCULAR VOLUME 87 fL (79-100); MONO % 6 % (0-9); NEUT % 68 % (31-73); PLATELET COUNT 162 x10^3/uL (140-400); RED BLOOD COUNT 5.15 x10^6/uL (4.30-5.70); RED CELL DISTRIBUTION WIDTH 14.1 % (11.5-14.5); WHITE BLOOD COUNT 12.7 x10^3/uL (4.0-11.0)
[2016-09-01 23:00] LABS: CALCIUM 8.3 mg/dL (8.5-10.1); CREATININE 1.1 mg/dL (0.7-1.3); GFR 74.9; POTASSIUM 3.8 mmol/L (3.5-5.1)
[2016-09-01] MEDS ORDERED: IV NORMAL SALINE 1000ML BAG 1,000 ML IV ONE (23:00)
[2016-09-01] MEDS ORDERED: ONDANSETRON PF 4 MG/2 ML VIAL. IV ONE (23:00)
[2016-09-01 23:04] LABS: ALBUMIN 3.3 g/dL (3.4-5.0); ALBUMIN/GLOBULIN RATIO 0.8 (1.0-1.7); TOTAL BILIRUBIN 0.3 mg/dL (0.2-1.0); TOTAL PROTEIN 7.4 g/dL (6.4-8.2)
[2016-09-01 23:17] LABS: BILIRUBIN,URINE NEGATIVE (NEG); GLUCOSE,URINE >=1000 mg/dL (NEG); NITRITE,URINE NEGATIVE (NEG); PROTEIN,URINE NEGATIVE (NEG-TRACE)
[2016-09-01] MEDS ORDERED: INSULIN REGULAR 100 UNIT/ML 10ML VIAL. IV ONE (23:30)
[2016-09-01 23:39] LABS: RBC,URINE 0 /HPF (0-2)
[2016-09-01 23:40] LABS: BACTERIA,URINE FEW /HPF (0-FEW)
[2016-09-02] MEDS ORDERED: ONDA4TAB10 SL (01:14)
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
[2016-09-02 01:25] VITALS: BP 124/76
--- NOTE | 2016-09-03 09:19 | EKG ---
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
== END 2016-09-02 01:30 | disposition home or self-care (01) ==
LOC: ER 22:04
DX: E11.65 Type 2 diabetes mellitus with hyperglycemia (principal); I10 Essential (primary) hypertension; R11.0 Nausea; R53.1 Weakness; J45.909 Unspecified asthma, uncomplicated; F17.200 Nicotine dependence, unspecified, uncomplicated; I25.2 Old myocardial infarction; Z79.4 Long term (current) use of insulin; Z88.6 Allergy status to analgesic agent; Z88.8 Allergy status to other drugs, medicaments and biological substances
CPT/HCPCS: 36415; 80053; 81001; 82962; 84484; 85027; 87086; 93005; 96361; 96374; 96375; 99285; J1815; J2405; J7030

== ENCOUNTER 2018-09-19 08:04 | Emergency (ER) | payer SELFPAY ==
[~2018-09-19] VITALS: Ht 177.8 cm; Wt 106.6 kg
[~2018-09-19 08:04] MED LIST changes: -METF-620 PO; +METF10007 PO; +ONDA4TAB10 SL
[2018-09-19] MEDS ORDERED: INSULIN REGULAR 100 UNIT/ML 3ML VIAL. IV ONE (08:45)
[2018-09-19 08:56] LABS: BASO % 1 % (0-3); EOS # 0.2 x10^3/uL (0.0-0.7); EOS % 3 % (0-3); HEMOGLOBIN 14.6 g/dL (13.0-17.5); LYMPH # 1.6 x10^3/uL (1.0-4.8); LYMPH % 23 % (24-48); MEAN CORPUSCULAR HEMOGLOBIN 30 pg (25-35); MEAN CORPUSCULAR HGB CONC 35 g/dL (31-37); MEAN CORPUSCULAR VOLUME 87 fL (79-100); MONO # 0.7 x10^3/uL (0.0-1.1); MONO % 10 % (0-9); NEUT # 4.5 x10^3uL (1.8-7.7); NEUT % 64 % (31-73); PLATELET COUNT 164 x10^3/uL (140-400); RED BLOOD COUNT 4.85 x10^6/uL (4.30-5.70); RED CELL DISTRIBUTION WIDTH 12.9 % (11.5-14.5)
[2018-09-19] MEDS ORDERED: IV NORMAL SALINE 1000ML BAG 1,000 ML IV ONE (09:00)
[2018-09-19 09:06] LABS: CALCIUM 8.7 mg/dL (8.5-10.1); CREATININE 0.9 mg/dL (0.7-1.3); GFR 93.5; POTASSIUM 3.8 mmol/L (3.5-5.1)
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
--- NOTE | 2018-09-19 10:30 | RAD ---
EXAM: 1. Right lower extremity arterial Doppler. 2. Right lower extremity venous Doppler. HISTORY: Known right lower extremity deep venous thrombosis status post treatment. Right lower extremity pain and swelling, claudication. COMPARISON: None available. FINDINGS: Grayscale and Doppler analysis of the right lower extremity arterial system was performed. There are triphasic waveforms throughout the right lower extremity. There are no elevated peak systolic velocities to suggest focal stenosis. Atherosclerotic calcifications are noted from the superficial femoral artery through the trifurcation arteries. Grayscale and Doppler analysis of the right lower extremity deep venous system was performed with graded compression and augmentation. The common femoral, greater saphenous, superficial femoral, popliteal and calf veins were assessed. There is nonocclusive thrombus within the right popliteal vein and posterior tibial veins. The remainder of the right lower extremity deep venous system is patent. IMPRESSION: 1. No evidence of hemodynamically significant right lower extremity arterial stenosis. 2. Nonocclusive thrombus within the right popliteal and posterior tibial veins as described by history. Comparison with prior studies is recommended. Electronically signed by: Eri Garcia MD (09/19/2018 10:27 AM) [facility]
[2018-09-19] MEDS ORDERED: INSU100I13 SQ (10:54)
[2018-09-19 11:00] VITALS: BP 146/80
--- NOTE | 2018-09-19 13:04 | EKG ---
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
== END 2018-09-19 11:15 | disposition home or self-care (01) ==
LOC: ER 08:04
DX: I82.531 Chronic embolism and thrombosis of right popliteal vein (principal); I82.541 Chronic embolism and thrombosis of right tibial vein; E10.65 Type 1 diabetes mellitus with hyperglycemia; I10 Essential (primary) hypertension; Z86.711 Personal history of pulmonary embolism; Z88.6 Allergy status to analgesic agent; Z88.8 Allergy status to other drugs, medicaments and biological substances
CPT/HCPCS: 36415; 80048; 82962; 85025; 93005; 93923; 93971; 96374; 99285; J1815; J7030

== ENCOUNTER 2018-11-22 20:59 | Emergency (ER) | payer SELFPAY ==
[~2018-11-22] VITALS: Ht 177.8 cm; Wt 102.1 kg
[2018-11-22 21:37] LABS: BASO # 0.1 x10^3/uL (0.0-0.2); BASO % 1 % (0-3); EOS # 0.4 x10^3/uL (0.0-0.7); EOS % 5 % (0-3); HEMATOCRIT 44.8 % (39.0-53.0); HEMOGLOBIN 15.5 g/dL (13.0-17.5); LYMPH # 2.1 x10^3/uL (1.0-4.8); LYMPH % 24 % (24-48); MEAN CORPUSCULAR HEMOGLOBIN 30 pg (25-35); MEAN CORPUSCULAR HGB CONC 35 g/dL (31-37); MEAN CORPUSCULAR VOLUME 86 fL (79-100); MONO # 0.7 x10^3/uL (0.0-1.1); MONO % 8 % (0-9); NEUT # 5.4 x10^3/uL (1.8-7.7); NEUT % 62 % (31-73); PLATELET COUNT 183 x10^3/uL (140-400); RED BLOOD COUNT 5.19 x10^6/uL (4.30-5.70); RED CELL DISTRIBUTION WIDTH 13.5 % (11.5-14.5); WHITE BLOOD COUNT 8.6 x10^3/uL (4.0-11.0)
[2018-11-22 21:46] LABS: CALCIUM 8.9 mg/dL (8.5-10.1); CREATININE 1.2 mg/dL (0.7-1.3); GFR 67.1; POTASSIUM 3.7 mmol/L (3.5-5.1)
[2018-11-22 21:52] LABS: ALBUMIN 3.6 g/dL (3.4-5.0); ALBUMIN/GLOBULIN RATIO 0.8 (1.0-1.7); TOTAL BILIRUBIN 0.5 mg/dL (0.2-1.0); TOTAL PROTEIN 8.1 g/dL (6.4-8.2)
[2018-11-22 22:00] LABS: CREATINE KINASE 65 U/L (39-308)
[2018-11-22] MEDS ORDERED: CONTRAST GIVEN. MC PRN (22:00)
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
[2018-11-22 22:15] LABS: BILIRUBIN,URINE NEGATIVE (NEG); CLARITY,URINE CLEAR; COLOR,URINE YELLOW; NITRITE,URINE NEGATIVE (NEG); PROTEIN,URINE NEGATIVE (NEG-TRACE)
[2018-11-22 22:23] LABS: BACTERIA,URINE 0 /HPF (0-FEW); RBC,URINE RARE /HPF (0-2); SQUAMOUS EPITHELIAL CELL,UR FEW /LPF; WBC,URINE RARE /HPF (0-4)
[2018-11-22] MEDS ORDERED: IOHEXOL 350 MG/ML 100 ML VIAL. IV ONE (22:30)
--- NOTE | 2018-11-22 22:37 | RAD ---
Right Lower Extremity Venous Doppler Ultrasound History: pain Comparison: None Procedure: Color flow, duplex, spectral analysis and 2D images are obtained with and without compression in the area of the common femoral vein, superficial femoral vein - femoral vein junction, main femoral vein (superficial femoral vein) and popliteal vein. Veins of the proximal calf are also imaged. Findings: There is nonocclusive thrombus in the distal SFV and popliteal vein. Impression: Study positive for DVT. Electronically signed by: Severo Schwartz III, MD (11/22/2018 10:35 PM) [place] [id number]
--- NOTE | 2018-11-22 22:42 | RAD ---
CTA Chest with contrast: Clinical History: Pleuritic chest pain. Axial helical images of the chest were obtained after the administration of 100 cc of IV Omni 350 and timed appropriately for a pulmonary arterial study. Conventional axial reconstruction was performed in addition to coronal, sagittal and bilateral oblique MIP (maximum intensity projection). This study was ordered to detect possible pulmonary embolism. There are no filling defects to suggest pulmonary embolism. There is mild diffuse reticular opacities in the lungs bilaterally There is no mediastinal or hilar lymphadenopathy. The thoracic aorta appears normal. Impression: 1. No evidence of pulmonary embolism. 2. Mild diffuse reticular opacities of lungs bilaterally is nonspecific and can be chronic pulmonary fibrosis. Mild atypical pneumonia is possible. PQRS Compliance Statement: One or more of the following individualized dose reduction techniques were utilized for this examination: 1. Automated exposure control 2. Adjustment of the mA and/or kV according to patient size 3. Use of iterative reconstruction technique Electronically signed by: Severo Schwartz III, MD (11/22/2018 10:39 PM) [id number]
[2018-11-22] MEDS ORDERED: INSULIN REGULAR 100 UNIT/ML 3ML VIAL. SQ ONE (23:00)
[2018-11-22] MEDS ORDERED: HYDR-3164 PO (23:12)
[2018-11-22 23:15] VITALS: BP 132/75
--- NOTE | 2018-11-23 16:59 | EKG ---
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
== END 2018-11-22 23:38 | disposition home or self-care (01) ==
LOC: ER 20:59
DX: I82.591 Chronic embolism and thrombosis of other specified deep vein of right lower extremity (principal); R07.9 Chest pain, unspecified; M79.604 Pain in right leg; E10.65 Type 1 diabetes mellitus with hyperglycemia; I10 Essential (primary) hypertension; F17.200 Nicotine dependence, unspecified, uncomplicated; Z86.711 Personal history of pulmonary embolism; Z88.1 Allergy status to other antibiotic agents; Z88.6 Allergy status to analgesic agent; Z88.8 Allergy status to other drugs, medicaments and biological substances
CPT/HCPCS: 36415; 71275; 80053; 81001; 82553; 83880; 84484; 85025; 93005; 93971; 96372; 99285; J1815; Q9967